=== PATIENT | female | born 1965 | race Caucasian/White ===

== ENCOUNTER → 2020-10-21 15:36 | Outpatient (CLI) | payer OTHER, SELFPAY ==
--- NOTE | 2020-10-21 | DI.MG.S_ITS ---
BILATERAL DIGITAL SCREENING MAMMOGRAM 3D/2D WITH CAD: 10/21/2020 CLINICAL: Routine screening. Family history of breast cancer. Comparison is made to exams dated: 10/12/2016 mammogram - [facility], 01/15/2010 mammogram, and 10/27/2004 mammogram - [facility]. The tissue of both breasts is extremely dense, which lowers the sensitivity of mammography. Current study was also evaluated with a Computer Aided Detection (CAD) system. No significant masses, calcifications, or other findings are seen in either breast. There has been no significant interval change. IMPRESSION: NEGATIVE There is no mammographic evidence of malignancy. A 1 year screening mammogram is recommended. This exam was interpreted at Station ID: [id number]. NOTE: For mammograms, a report in lay terms will be sent to the patient. Approximately 15% of breast malignancies will not be visualized mammographically. In the management of a palpable breast mass, a negative mammogram must not discourage biopsy of a clinically suspicious lesion. Electronically Signed By: Magdy [email or web address]/[email or web address]:10/21/2020 18:05:21 letter sent: Normal Exam ACR BI-RADS Category 1: Negative 3341F
== END ==
PROVIDERS: Referring Provider Family Medicine; Visit Provider Family Medicine
DX: Z12.31 Encounter for screening mammogram for malignant neoplasm of breast (principal); Z80.3 Family history of malignant neoplasm of breast
CPT/HCPCS: 77063; 77067

== ENCOUNTER 2025-08-03 15:11 | Emergency (ER) | payer OTHER, SELFPAY ==
[2025-08-03 15:19] VITALS: PULSE 64; RESP 12; TEMP 36.4; O2SAT 99; BMI 23.6
--- NOTE | 2025-08-03 15:35 | PC.NURSE ---
Dr Beltre attempted to close wound with dermabond in triage. Wound was irrigated with NS, tourniquet applied to finger to stop bleeding. After release of turnouquet blood begane oozing out from under nail bed and finger. Pressure dressing reapplied.
--- NOTE | 2025-08-03 17:19 | ED.WOUNDLAC ---
HPI - Wound/Laceration General Chief Complaint: Wound/Laceration Stated Complaint: Rt hand pinky injury Time Seen by Provider: 08/03/25 15:20 Source: patient Mode of arrival: Ambulatory History of Present Illness HPI narrative: 60-year-old female patient with a history of lumbar radiculopathy who had her right little finger smashed in a door at work. She complains of trauma to distal right little finger with bleeding. She has it wrapped. No other injury. Tetanus up-to-date Related Data Allergies Allergy/AdvReac Type Severity Reaction Status Date / Time amoxicillin (From AUGMENTIN) Allergy Mild RASH Unverified 08/03/25 15:19 clavulanic acid (From Allergy Mild RASH Unverified 08/03/25 15:19 AUGMENTIN) Review of Systems Review of Systems ROS Unobtainable: All systems reviewed & are unremarkable except as noted in HPI and below Musculoskeletal Musculoskeletal: Reports as per HPI Patient History Family History (Updated 07/21/17 @ 00:00 by Conversion Provider) Father Age: 94 Heart disease Hypertension High cholesterol Social History Smoking Status: Never smoker Smoking Status: Never smoker Exam Narrative Exam Narrative: General: Alert and conversant. No distress. Appears well nourished and well hydrated Lungs: Nonlabored respiration. Musculoskeletal: Distal right 5th finger has a 2 cm laceration on the pad which is mildly bleeding. Nail appears to be possibly partially avulsed. No subungual hematoma. No other injury of the right hand or upper extremity. Neuro: Alert and oriented. Cranial nerves, motor, sensory and cerebellar all grossly intact. No focal deficit Skin: Warm and normal color. No rashes Psychological: Normal affect and interaction. No evidence of delusion or psychosis. Normal mood. Initial Vital Signs Initial Vital Signs: Vital Signs Temperature 97.6 F 08/03/25 15:19 Pulse Rate 64 08/03/25 15:19 Respiratory Rate 12 08/03/25 15:19 Pulse Oximetry 99 08/03/25 15:19 Oxygen Delivery Method Room Air 08/03/25 15:19 Procedures Laceration Repair Laceration 1: Site: hand (Right 5th finger) Side (If applicable): right Size (cm): 2 Description: linear Depth: simple, single layer Pre-repair: irrigated extensively Skin layer closed with: dermabond Course Vital Signs Vital signs: Vital Signs - 8 hr 08/03/25 15:19 Temperature 97.6 F Pulse Rate 64 Respiratory Rate 12 Pulse Oximetry 99 Oxygen Delivery Method Room Air MDM - Wound/Laceration MDM Narrative Medical decision making narrative: Blunt trauma to the distal right 5th finger with laceration that was cleansed, irrigated and repaired with Dermabond. Home care instructions given to follow up as needed for any wound healing problems Discharge Plan Departure Patient Disposition: Home Clinical Impression: Laceration of finger, right Instructions: DI for Laceration Repair-Skin Glue, DI for Nail Avulsion Injury Activity Restrictions/Additional Instructions: Assessment: Right 5th finger laceration repaired with sterile glue. There is also possible nail injury. Plan: Leave the dressing in place for 24 hours. After that may remove and cleanse gently and replace the dressing if needed. Follow up with your provider for recheck in 2-3 days. Return to the ER if worse. Stand Alone Forms: Patient Portal/API
== END 2025-08-03 17:29 | disposition home or self-care (01) ==
PROVIDERS: Emergency Provider Emergency Medicine
DX: S61.216A Laceration without foreign body of right little finger without damage to nail, initial encounter (principal); W23.0XXA Caught, crushed, jammed, or pinched between moving objects, initial encounter; Y99.0 Civilian activity done for income or pay
CPT/HCPCS: 12001; 99282